=== PATIENT | female | born 1965 ===

== ENCOUNTER 2025-06-06 06:27 | Day surgery (SDC) | payer OTHER ==
[2025-05-29 11:58] LABS: BASO % 0.4 % (0.1-1.2); EOS # 0.34 (0.04-0.54); EOS % 3.8 % (0.7-7.0); LYMPH # 3.38 (1.18-3.74); LYMPH % 37.3 % (19.3-53.1); MEAN PLATELET VOLUME 8.80 fl (9.4-12.4); MONO # 0.68 (0.24-0.82); MONO % 7.5 % (4.7-12.5); NEUT # 4.59 (1.56-6.13); NEUT % 50.7 % (34.0-71.1); RED CELL DISTRIBUTION WIDTH 12.9 % (11.6-14.4)
[2025-05-29 12:05] LABS: URINE APPEARANCE Clear; URINE BILIRRUBIN Negative (NEGATIVE); URINE BLOOD Negative; URINE COLOR Yellow; URINE GLUCOSE Negative (NEGATIVE); URINE KETONE Negative (NEGATIVE); URINE LEUKOCYTE Negative; URINE NITRATE Negative; URINE PROTEIN Negative (NEGATIVE); URINE UROBILINOGEN 1.0 E.U./dl
[2025-05-29 12:10] LABS: URINE BACTERIA 92.6 uL (0.0-1933); URINE EPITHELIAL CELLS 4.5 uL (0.0-38.8); URINE RBC 3.3 uL (0.0-20.8)
[2025-05-29 12:22] LABS: INR 1.04
[2025-05-29 12:25] VITALS: BP 127/84
[2025-05-29 12:27] LABS: ALT/SGPT 85.0 U/L (12-78); AST/SGOT 59.0 U/L (15-37); BILIRUBIN TOTAL 0.65 mg/dL (0.3-1.2); BUN CREA RATIO 21.0 (7.0-25.0); CREATININE SERUM 0.62 mg/dL (0.55-1.02); GFR 98.52; GLOBULINA 4.0 G/DL (2.4-3.5); GLUCOSE FASTING 101.0 mg/dL (65-100); OSMOLALITY SERUM 287.0 MOSM/KG (275-295)
[2025-05-29 12:36] LABS: URINE CAST 0.00 uL (0.0-1.40); URINE WBC 1.2 uL (0.0-23.2)
[~2025-06-06] VITALS: Ht 162.6 cm; Wt 68.0 kg
[~2025-06-06 06:27] MED LIST: CILOSTAZOL100 MG PO; ECOTRIN81 MG PO; LIPITOR40 M1 PO; TENTRAL
[2025-06-06] MEDS ORDERED: CEFTRIAXONE SODIUM 2,000 MG VIAL ONE (08:47)
[2025-06-06] MEDS ORDERED: METRONIDAZOLE/SODIUM CHLORIDE 500 MG/100 ML PIGGYBACK IV ONE (08:48)
[2025-06-06] MEDS ORDERED: HEMOSTATIC MATRIX 1 KIT KIT TOP ONE (11:47)
[2025-06-06] MEDS ORDERED: DIBUCAINE 30 GM TUBE ONE (11:48)
[2025-06-06] MEDS ORDERED: BUPIVACAINE HCL 30 ML VIAL IJ ONE (13:00)
[2025-06-06] MEDS ORDERED: POVIDONE-IODINE 118 ML BOTT TOP ONE (13:00)
[2025-06-06] MEDS ORDERED: LIDOCAINE HCL 1%/EPINEPHRINE 20ML VIAL IJ ONE (13:00)
[2025-06-06] MEDS ORDERED: ONDANSETRON HCL 2 MG/ML VIAL ONE (14:50)
== END 2025-06-06 18:10 | disposition home or self-care (01) ==
LOC: CIR.AMB 06:27
PROVIDERS: ATTEND Colon & Rectal Surgery
DX: D12.9 Benign neoplasm of anus and anal canal (principal); K62.0 Anal polyp